=== PATIENT | male | born 1995 | race African-American/Black ===

== ENCOUNTER 2018-10-16 16:54 | Emergency (ER) | payer OTHER ==
[~2018-10-16] VITALS: Ht 175.3 cm; Wt 90.7 kg
[2018-10-16] VITALS (20 sets, daily range): BP systolic 119–138; BP diastolic 60–84
--- NOTE | 2018-10-16 17:08 | NUR ---
ED Nurse Note: PT BROUGHT IN BY [id number] FROM HOME. PT ESCORTED BY [employer]. PER EMS, MOTHER CALLED 911 DUE TO AGGRESSION. EMS STATES MOTHER TOLD THEM HE HAS NOT BEEN TAKING HIS PSYCH MEDICATIONS. PER [employer], PT WILL BE PLACED ON 5150 AND PAPERWORK PROCESSING. PT AGGRESSIVE TOWARDS EMS AND MEDICAL STAFF AND RESISTIVE TO CARE. 4-POINT RESTRAINTS REQUESTED TO DR. REDMAN.
--- NOTE | 2018-10-16 17:10 | NUR ---
ED Nurse Note: SECURITY AT BEDSIDE. 4-POINT RESTRAINTS PLACED ON PT. MEDS ADMINISTERED PER MD ORDER. WAITING FOR PT TO CALM DOWN BEFORE STARTING BLOOD DRAW.
[2018-10-16] MEDS ORDERED: LORazepam Inj 2mg/ml 1ml IM ONE (17:15)
[2018-10-16] MEDS ORDERED: Haloperidol 5mg/ml Inj IM ONE (17:15)
[2018-10-16] MEDS ORDERED: DiphenhydrAMINE 50mg/ml Inj IM ONE (17:15)
--- NOTE | 2018-10-16 17:15 | Emergency Room Report ---
History of Present Illness General Chief Complaint: Behavioral Complaint Source: Patient, EMS, Law Enforcement (Figueroa Lyons MD) Present Illness HPI Patient is brought in by EMS with police accompanying. Police were called by mother saying that patient was escalating and threatening her. He's not been taking his psychiatric medications and has been self-medicating with THC. The patient denies suicidal or homicidal ideation at this time. He is fairly agitated and refuses to answer most questions. Allegedly there is a history of schizophrenia. (Figueroa Lyons MD) Allergies: Coded Allergies: UNABLE TO ASSESS (Unverified , 10/16/18) Patient History Past Medical History: see triage record Social History: Reports: drug use - THC Social History Narrative lives with his mother Reviewed Nursing Documentation: PMH: Agreed; PSxH: Agreed (Figueroa Lyons MD) Nursing Documentation-PMH Past Medical History: No History, Except For History Of Psychiatric Problem: Yes - Paranoid schizophrenia (Figueroa Lyons MD) Review of Systems All Other Systems: limited (Figueroa Lyosn MD) Physical Exam Vital Signs Date Time Temp Pulse Resp B/P (MAP) Pulse Ox O2 Delivery O2 Flow Rate FiO2 10/16/18 17:01 97.0 84 16 137/74 97 Room Air Sp02 EP Interpretation: reviewed, normal General Appearance: well appearing, no apparent distress, alert Head: normocephalic Eyes: bilateral eye PERRL, bilateral eye EOMI, bilateral eye Scleral Injection ENT: moist mucus membranes Neck: supple Respiratory: lungs clear, normal breath sounds Cardiovascular #1: regular rate, rhythm Cardiovascular #2: 2+ radial (R) Gastrointestinal: normal inspection, normal bowel sounds, non tender, no mass, non-distended Musculoskeletal: back normal, normal range of motion Neurologic: alert, synchronizer III-XII nml as tested, motor strength/tone normal, DTRs symmetric, sensory intact, cerebellar normal, speech normal Psychiatric: no suicidal/homicidal ideation, other - Slightly agitated and refusing to obey commands Skin: normal inspection, warm/dry, other - Tattoos (Figueroa Lyons MD) Medical Decision Making Medical: Substance Abuse Behavioral: Schizophrenia Reaction to Intervention: No change Restraint Reassesment I, Figueroa Lyons MD, have personally evaluated this patient. Laboratory tests have been reviewed and addressed accordingly. The patient is deemed to present a danger to themselves and/or others. This is based on the exam, history ( provided by EMS/[employer] and/or family) and observed or reported behavior. Attempts for non-invasive measures have been considered and/or attempted, however, have been futile. It is in the best interest of the nursing staff, the patient, and others involved in this patient's care that behavioral restraints be applied. Patient evaluation reveals the following: Patient refusing to cooperate and fighting against staff refusing to calm down. (Figueroa Lyons MD) Diagnostic Impression: Primary Impression: Psychosis Qualified Codes: F29 - Unspecified psychosis not due to a substance or known physiological condition Additional Impressions: Renal insufficiency Rhabdomyolysis Qualified Codes: M62.82 - Rhabdomyolysis Schizophrenia Qualified Codes: F20.9 - Schizophrenia, unspecified ER Course Patient presents with threatening violence and history of schizophrenia with noncompliance. Differential includes exacerbation of schizophrenia, left right imbalance, drug ingestion amongst others. Patient needs to be restrained and sedated. Evaluation will be with EKG and labs. The patient will receive IV hydration. Police apparently putting the patient on a 5150. (They did not place on 5150.) EKG no injury. Labs with renal insufficiency. Tox + THC. Patient sedated. Hydration. Repeat BMP. Patient sleeping but easily roused. Unable to assess level of psychosis. Attempt to call mother. No phone number available. Signed out to Dr. Luz. Laboratory Tests Test 10/16/18 17:35 10/16/18 18:39 10/16/18 21:45 White Blood Count 5.9 K/UL (4.8-10.8) Red Blood Count 4.95 M/UL (4.70-6.10) Hemoglobin 13.6 G/DL (14.2-18.0) L Hematocrit 42.4 % (42.0-52.0) Mean Corpuscular Volume 86 FL (80-99) Mean Corpuscular Hemoglobin 27.4 PG (27.0-31.0) Mean Corpuscular Hemoglobin Concent 32.0 G/DL (32.0-36.0) Red Cell Distribution Width 13.6 % (11.6-14.8) Platelet Count 223 K/UL (150-450) Mean Platelet Volume 6.4 FL (6.5-10.1) L Neutrophils (%) (Auto) 53.9 % (45.0-75.0) Lymphocytes (%) (Auto) 24.9 % (20.0-45.0) Monocytes (%) (Auto) 12.0 % (1.0-10.0) H Eosinophils (%) (Auto) 7.7 % (0.0-3.0) H Basophils (%) (Auto) 1.5 % (0.0-2.0) Sodium Level 138 MMOL/L (136-145) 139 MMOL/L (136-145) Potassium Level 3.8 MMOL/L (3.5-5.1) 3.6 MMOL/L (3.5-5.1) Chloride Level 101 MMOL/L (98-107) 104 MMOL/L (98-107) Carbon Dioxide Level 24 MMOL/L (21-32) 23 MMOL/L (21-32) Anion Gap 13 mmol/L (5-15) 12 mmol/L (5-15) Blood Urea Nitrogen 25 mg/dL (7-18) H 25 mg/dL (7-18) H Creatinine 1.6 MG/DL (0.55-1.30) H 1.6 MG/DL (0.55-1.30) H Estimate Glomerular Filtration Rate 51.4 mL/min (>60) > 60 mL/min (>60) Glucose Level 86 MG/DL (74-106) 92 MG/DL (74-106) Calcium Level 10.2 MG/DL (8.5-10.1) H 9.7 MG/DL (8.5-10.1) Total Bilirubin 0.6 MG/DL (0.2-1.0) Aspartate Amino Transferase (AST) 42 U/L (15-37) H Alanine Aminotransferase (ALT) 45 U/L (12-78) Alkaline Phosphatase 60 U/L (46-116) Total Creatine Kinase 738 U/L (26-308) H Total Protein 9.0 G/DL (6.4-8.2) H Albumin 4.6 G/DL (3.4-5.0) Globulin 4.4 g/dL Albumin/Globulin Ratio 1.0 (1.0-2.7) Salicylates Level 3.8 ug/mL (2.8-20) Acetaminophen Level < 2 MCG/ML (10-30) L Serum Alcohol < 3 mg/dL Urine Opiates Screen Negative (NEGATIVE) Urine Barbiturates Screen Negative (NEGATIVE) Phencyclidine (PCP) Screen Negative (NEGATIVE) Urine Amphetamines Screen Negative (NEGATIVE) Urine Benzodiazepines Screen Negative (NEGATIVE) Urine Cocaine Screen Negative (NEGATIVE) Urine Marijuana (THC) Screen Positive (NEGATIVE) H (Figueroa Lyons MD) ER Course Hospital Course 23-year-old male presents ED for aggressive behavior. Mother called 911. History of schizophrenia Clinical course Patient initially seen and evaluated by Dr Lyons; please see his note for full history and physical Patient initially given Haldol and Ativan last night. Allowed to sleep. Initial labs show creatinine 1.6 and mildly elevated CK of 738 This morning on evaluation patient is awake but not speaking sensibly. Patient is not been on his medications. Repeat labs show cranny 1.4, CK greater than 1300. Consideration for rhabdomyolysis. Patient cannot be medically cleared at this time for psychiatric evaluation Patient requiring additional medications for sedation. Patient not on 5150 hold Because of insurance patient will be transferred i. I feel this is a highly complex case requiring extensive working including EKG/Rhythm strip, Xray/CT/US, Blood/urine lab work, repeat exams while in ED, and administration of strong opiates/narcotics for pain control, admission to hospital or close patient follow up. Diagnosispsychosis, renal insufficiency, rhabdomyolysis, schizophrenia Transferred in serious condition Labs Test 10/16/18 17:35 10/16/18 18:39 10/16/18 21:45 10/17/18 08:53 White Blood Count 5.9 K/UL (4.8-10.8) Red Blood Count 4.95 M/UL (4.70-6.10) Hemoglobin 13.6 G/DL (14.2-18.0) Hematocrit 42.4 % (42.0-52.0) Mean Corpuscular Volume 86 FL (80-99) Mean Corpuscular Hemoglobin 27.4 PG (27.0-31.0) Mean Corpuscular Hemoglobin Concent 32.0 G/DL (32.0-36.0) Red Cell Distribution Width 13.6 % (11.6-14.8) Platelet Count 223 K/UL (150-450) Mean Platelet Volume 6.4 FL (6.5-10.1) Neutrophils (%) (Auto) 53.9 % (45.0-75.0) Lymphocytes (%) (Auto) 24.9 % (20.0-45.0) Monocytes (%) (Auto) 12.0 % (1.0-10.0) Eosinophils (%) (Auto) 7.7 % (0.0-3.0) Basophils (%) (Auto) 1.5 % (0.0-2.0) Sodium Level 138 MMOL/L (136-145) 139 MMOL/L (136-145) 138 MMOL/L (136-145) Potassium Level 3.8 MMOL/L (3.5-5.1) 3.6 MMOL/L (3.5-5.1) 4.1 MMOL/L (3.5-5.1) Chloride Level 101 MMOL/L (98-107) 104 MMOL/L (98-107) 105 MMOL/L (98-107) Carbon Dioxide Level 24 MMOL/L (21-32) 23 MMOL/L (21-32) 23 MMOL/L (21-32) Anion Gap 13 mmol/L (5-15) 12 mmol/L (5-15) 10 mmol/L (5-15) Blood Urea Nitrogen 25 mg/dL (7-18) 25 mg/dL (7-18) 21 mg/dL (7-18) Creatinine 1.6 MG/DL (0.55-1.30) 1.6 MG/DL (0.55-1.30) 1.4 MG/DL (0.55-1.30) Estimat Glomerular Filtration Rate 51.4 mL/min (>60) > 60 mL/min (>60) > 60 mL/min (>60) Glucose Level 86 MG/DL (74-106) 92 MG/DL (74-106) 93 MG/DL (74-106) Calcium Level 10.2 MG/DL (8.5-10.1) 9.7 MG/DL (8.5-10.1) 8.7 MG/DL (8.5-10.1) Total Bilirubin 0.6 MG/DL (0.2-1.0) 0.4 MG/DL (0.2-1.0) Aspartate Amino Transf (AST/SGOT) 42 U/L (15-37) 47 U/L (15-37) Alanine Aminotransferase (ALT/SGPT) 45 U/L (12-78) 39 U/L (12-78) Alkaline Phosphatase 60 U/L (46-116) 54 U/L (46-116) Total Creatine Kinase 738 U/L (26-308) 1368 U/L (26-308) Total Protein 9.0 G/DL (6.4-8.2) 7.4 G/DL (6.4-8.2) Albumin 4.6 G/DL (3.4-5.0) 3.8 G/DL (3.4-5.0) Globulin 4.4 g/dL 3.6 g/dL Albumin/Globulin Ratio 1.0 (1.0-2.7) 1.1 (1.0-2.7) Salicylates Level 3.8 ug/mL (2.8-20) Acetaminophen Level < 2 MCG/ML (10-30) Serum Alcohol < 3 mg/dL Urine Opiates Screen Negative (NEGATIVE) Urine Barbiturates Screen Negative (NEGATIVE) Phencyclidine (PCP) Screen Negative (NEGATIVE) Urine Amphetamines Screen Negative (NEGATIVE) Urine Benzodiazepines Screen Negative (NEGATIVE) Urine Cocaine Screen Negative (NEGATIVE) Urine Marijuana (THC) Screen Positive (NEGATIVE) (Ac Adair MD) EKG Diagnostic Results Rate: normal Rhythm: NSR ST Segments: no acute changes (Figueroa Lyons MD) Rhythm Strip Diag. Results EP Interpretation: yes Rhythm: NSR, no PVC's, no ectopy (Figueroa Lyons MD) Last Vital Signs Date Time Temp Pulse Resp B/P (MAP) Pulse Ox O2 Delivery O2 Flow Rate FiO2 10/17/18 11:52 98.5 80 18 128/78 96 Room Air Status: improved (Figueroa Lyons MD) Status: improved (Ac Adair MD) Disposition: XFER SHT-TRM HOSP Condition: Serious Figueroa Lyons MD Oct 16, 2018 17:15 Ac Adair MD Oct 17, 2018 11:36
--- NOTE | 2018-10-16 17:20 | NUR ---
ED Nurse Note: PT BELONGINGS PLACED IN LOCKER #2
--- NOTE | 2018-10-16 17:25 | NUR ---
ED Nurse Note: SITTER AT BEDSIDE
[2018-10-16 17:59] LABS: BASOPHILS % (AUTO) 1.5 % (0.0-2.0); EOSINOPHILS % (AUTO) 7.7 % (0.0-3.0); HEMATOCRIT 42.4 % (42.0-52.0); HEMOGLOBIN 13.6 G/DL (14.2-18.0); LYMPHOCYTES % (AUTO) 24.9 % (20.0-45.0); MEAN CORPUSCULAR VOLUME 86 FL (80-99); NEUTROPHILS % (AUTO) 53.9 % (45.0-75.0); PLATELET COUNT 223 K/UL (150-450); RED BLOOD COUNT 4.95 M/UL (4.70-6.10); RED CELL DISTRIBUTION WIDTH 13.6 % (11.6-14.8); WHITE BLOOD COUNT 5.9 K/UL (4.8-10.8)
[2018-10-16 18:17] LABS: ANION GAP 13 mmol/L (5-15); BLOOD UREA NITROGEN 25 mg/dL (7-18); CALCIUM 10.2 MG/DL (8.5-10.1); CARBON DIOXIDE 24 MMOL/L (21-32); CHLORIDE 101 MMOL/L (98-107); CREATININE 1.6 MG/DL (0.55-1.30); POTASSIUM 3.8 MMOL/L (3.5-5.1); SODIUM 138 MMOL/L (136-145)
[2018-10-16 18:22] LABS: ALANINE AMINOTRANSFERASE 45 U/L (12-78); ALBUMIN 4.6 G/DL (3.4-5.0); ALKALINE PHOSPHATASE 60 U/L (46-116); ASPARTATE AMINO TRANSFERASE 42 U/L (15-37); BILIRUBIN,TOTAL 0.6 MG/DL (0.2-1.0); CREATINE KINASE 738 U/L (26-308)
--- NOTE | 2018-10-16 19:13 | NUR ---
ED Nurse Note: REPORT GIVEN TO SANDRA CORCORAN.
--- NOTE | 2018-10-16 20:55 | NUR ---
ED Nurse Note: pt AA&ox3, unable to state specific time, pt states he will stay calm and cooperative, req off restraints, ERMD notified.
--- NOTE | 2018-10-16 21:10 | NUR ---
ED Nurse Note: ERMD verbal order received to d/c restraints. pt now off from restraints, skin intact, no s/s injury noted, cms intact, cap refill <3sec, active rom.
--- NOTE | 2018-10-16 21:20 | NUR ---
Note annalisa in EDM - 10/17/18 at 0536 by [email or web address] ED Nurse Note: pt AA&ox3, unable to state specific time, pt states he will stay calm and cooperative, req off restraints, ERMD notified.
--- NOTE | 2018-10-16 21:30 | NUR ---
Note annalisa in EDM - 10/17/18 at 0536 by [email or web address] ED Nurse Note: ERMD verbal order received to d/c restraints. pt now off from restraints, skin intact, no s/s injury noted, cms intact, cap refill <3sec, active rom.
--- NOTE | 2018-10-16 21:45 | NUR ---
ED Nurse Note: offered pt food and drinks, toileting, pt refused, states he wants to sleep, will cont monitor, pt advised to notify staff if needed assist.
[2018-10-16 22:35] LABS: ANION GAP 12 mmol/L (5-15); BLOOD UREA NITROGEN 25 mg/dL (7-18); CALCIUM 9.7 MG/DL (8.5-10.1); CARBON DIOXIDE 23 MMOL/L (21-32); CHLORIDE 104 MMOL/L (98-107); CREATININE 1.6 MG/DL (0.55-1.30); POTASSIUM 3.6 MMOL/L (3.5-5.1); SODIUM 139 MMOL/L (136-145)
--- NOTE | 2018-10-16 23:00 | NUR ---
ED Nurse Note: pt sleeping at this time, vss, airway intact, resp even and unlabored on RA, iv intact and patent, will cont monitor.
[2018-10-17 01:30] VITALS: BP 129/76
--- NOTE | 2018-10-17 03:30 | NUR ---
ED Nurse Note: report given to rn demond and endorsed care, pt vss, airway intact, resp even and unlabored on RA, calm and cooperative, sleeping but arousable to light shake.
[2018-10-17 05:00] VITALS: BP 129/71
--- NOTE | 2018-10-17 05:00 | NUR ---
ED Nurse Note: Patient sleeping comfortably on gurney. Patient breathing is even and unlabored. VSS. No s/s of acute distress noted at this time. Will continue to monitor.
--- NOTE | 2018-10-17 07:15 | NUR ---
ED Nurse Note: Dr Adair at the bed side talking to the patient and pt unable to answer questions correctly. Noted pt to be manipulative and talkative.
--- NOTE | 2018-10-17 07:28 | NUR ---
ED Nurse Note: Breakfast tray provided to the patient. IV fluids running.
[2018-10-17 07:52] VITALS: BP 132/70
[2018-10-17] MEDS ORDERED: UNOBMED (08:19)
--- NOTE | 2018-10-17 09:01 | NUR ---
ED Nurse Note: Blood drawn and sent.
[2018-10-17 09:17] LABS: ANION GAP 10 mmol/L (5-15); BLOOD UREA NITROGEN 21 mg/dL (7-18); CALCIUM 8.7 MG/DL (8.5-10.1); CARBON DIOXIDE 23 MMOL/L (21-32); CHLORIDE 105 MMOL/L (98-107); CREATININE 1.4 MG/DL (0.55-1.30); POTASSIUM 4.1 MMOL/L (3.5-5.1); SODIUM 138 MMOL/L (136-145)
[2018-10-17 09:31] LABS: ALANINE AMINOTRANSFERASE 39 U/L (12-78); ALBUMIN 3.8 G/DL (3.4-5.0); ALBUMIN/GLOBULIN RATIO 1.1 (1.0-2.7); ALKALINE PHOSPHATASE 54 U/L (46-116); ASPARTATE AMINO TRANSFERASE 47 U/L (15-37); BILIRUBIN,TOTAL 0.4 MG/DL (0.2-1.0); CREATINE KINASE 1368 U/L (26-308)
[2018-10-17] MEDS ORDERED: ZyPREXA Zydis 5mg tab ORAL ONE (10:15)
--- NOTE | 2018-10-17 10:15 | NUR ---
ED Nurse Note: Pt pulld out his IV access and noted the NS IV fluids dripping on the floor. Pt is very uncooperative and difficult. Dr Adair notified of pt's behavior.
--- NOTE | 2018-10-17 10:22 | NUR ---
ED Nurse Note: Opened medication wrap of Zyprexa and wasted. Pt refused to take medication and non compliant. Witnessed by Kajal FLORES. ER notified.
[2018-10-17] MEDS ORDERED: DiphenhydrAMINE 50mg/ml Inj IM ONE (10:45)
[2018-10-17] MEDS ORDERED: LORazepam Inj 2mg/ml 1ml IM ONE (10:45)
[2018-10-17] MEDS ORDERED: Haloperidol 5mg/ml Inj IM ONE (10:45)
[2018-10-17 11:00] VITALS: BP 127/70
--- NOTE | 2018-10-17 11:50 | NUR ---
ED Nurse Note: Report given to Marco Antonio FLORES of [facility] and all belongings given to RA aKvon Hdez. Pt transferred via gurney and rigo.
[2018-10-17 11:52] VITALS: BP 128/78
--- NOTE | 2018-10-19 15:36 | Cardiology Report ---
APPROVED REPORT EKG Measurement Heart [id number] Normal sinus rhythm with sinus arrhythmia ST elevation, probably due to early repolarization Borderline ECG
== END 2018-10-17 11:52 | disposition short-term general hospital (02) ==
LOC: EDBD 16:54 → EMR 17:35 → EDBEDREQ 10-17 09:43 → EMR 10-17 11:52
DX: F29 Unspecified psychosis not due to a substance or known physiological condition (principal); N28.9 Disorder of kidney and ureter, unspecified; M62.82 Rhabdomyolysis; F20.0 Paranoid schizophrenia; F12.90 Cannabis use, unspecified, uncomplicated; Z91.14 Patient's other noncompliance with medication regimen
CPT/HCPCS: 36415; 80048; 80053; 80307; 80329; 82550; 85025; 93005; 96360; 96372; 99285; J1200; J1630